=== PATIENT | female | born 1970 | race African-American/Black ===

== ENCOUNTER 2017-09-01 23:15 | Emergency (ER) | payer SELFPAY ==
[~2017-09-01] VITALS: Ht 162.6 cm; Wt 77.1 kg
[~2017-09-01 23:15] MED LIST: CLIN300C8 PO; NAPR-695 PO; PENI500T PO; SENN1TAB7 PO; UNABLE MC
--- NOTE | 2017-09-01 23:32 | PHYS DOC ---
Past Medical History Past Medical History: Anxiety, Asthma, Hypertension Additional Past Medical Histor: OCD,mj,lortab and cocaine detox Past Surgical History: Alcohol Use: None Drug Use: Cocaine, Marijuana, Opiates, Other Adult General Chief Complaint Chief Complaint: left earache [facility] HPI Patient is a 47 year old female who presents with 5 day history gradual onset left-sided earache radiating to the left side of the head. Denies neck pain or stiffness or fever. Denies any chest pain shortness of breath or abdominal pain. Reports some heartburn. Currently undergoing drug rehabilitation for cocaine abuse. Denies sinus congestion or cough. Review of Systems Review of Systems Constitutional: Denies fever or chills [] Eyes: Denies change in visual acuity, redness, or eye pain [] HENT: Denies nasal congestion or sore throat [] Respiratory: Denies cough or shortness of breath [] Cardiovascular: No additional information not addressed in HPI [] GI: Denies abdominal pain, nausea, vomiting, bloody stools or diarrhea [] : Denies dysuria or hematuria [] Musculoskeletal: Denies back pain or joint pain [] Integument: Denies rash or skin lesions [] Neurologic: Denies headache, focal weakness or sensory changes [] Endocrine: Denies polyuria or polydipsia [] Current Medications Current Medications Current Medications Medications (Trade) Dose Ordered Sig/Monika Start Time Stop Time Status Last Admin Dose Admin Acetaminophen (Tylenol) 1,000 mg 1X ONCE 09/01/17 23:45 09/01/17 23:46 DC 09/01/17 23:56 1,000 MG Famotidine (Pepcid) 20 mg 1X ONCE 09/01/17 23:45 09/01/17 23:46 DC 09/01/17 23:56 20 MG Sucralfate (Carafate) 1 gm 1X ONCE 09/01/17 23:45 09/01/17 23:46 DC 09/01/17 23:56 1 GM Allergies Allergies Allergies Coded Allergies Type Severity Reaction Last Updated Verified Sulfa (Sulfonamide Antibiotics) Allergy Severe swelling 10/12/16 Yes Penicillins Allergy Intermediate hives 10/12/16 Yes tuberculin,PPD,multi-puncture Allergy Intermediate hives 10/12/16 Yes Physical Exam Physical Exam Constitutional: Well developed, well nourished, no acute distress, non-toxic appearance. [] HENT: Normocephalic, atraumatic, bilateral external ears normal, oropharynx moist, no oral exudates, nose normal. Left TM is completely normal and the canal is not swollen. [] Eyes: PERRLA, EOMI, conjunctiva normal, no discharge. [] Neck: Normal range of motion, no tenderness, supple, no stridor. No meningismus , no cervical lymphadenopathy [] Cardiovascular: Heart rate regular rhythm, no murmur [] Lungs & Thorax: Bilateral breath sounds clear to auscultation [] Abdomen: Bowel sounds normal, soft, no tenderness, no masses, no pulsatile masses. [] Skin: Warm, dry, no erythema, no rash. [] Back: No tenderness, no CVA tenderness. [] Extremities: No tenderness, no cyanosis, no clubbing, ROM intact, no edema. [] Neurologic: Alert and oriented X 3, normal motor function, normal sensory function, no focal deficits noted. Radial nerves II through XII grossly intact [ ] Psychologic: Affect normal, judgement normal, mood normal. [] Current Patient Data Vital Signs Vital Signs Date Time Temp Pulse Resp B/P (MAP) Pulse Ox O2 Delivery O2 Flow Rate FiO2 09/02/17 00:41 95 20 100 09/01/17 23:20 98.0 123/83 (96) Room Air 98.0 Lab Values Laboratory Tests Test 09/01/17 23:54 White Blood Count 9.7 x10^3/uL (4.0-11.0) Red Blood Count 4.94 x10^6/uL (3.50-5.40) Hemoglobin 13.1 g/dL (12.0-15.5) Hematocrit 39.4 % (36.0-47.0) Mean Corpuscular Volume 80 fL (79-100) Mean Corpuscular Hemoglobin 26 pg (25-35) Mean Corpuscular Hemoglobin Concent 33 g/dL (31-37) Red Cell Distribution Width 16.4 % (11.5-14.5) H Platelet Count 272 x10^3/uL (140-400) Neutrophils (%) (Auto) 52 % (31-73) Lymphocytes (%) (Auto) 37 % (24-48) Monocytes (%) (Auto) 7 % (0-9) Eosinophils (%) (Auto) 3 % (0-3) Basophils (%) (Auto) 1 % (0-3) Neutrophils # (Auto) 5.0 x10^3uL (1.8-7.7) Lymphocytes # (Auto) 3.6 x10^3/uL (1.0-4.8) Monocytes # (Auto) 0.7 x10^3/uL (0.0-1.1) Eosinophils # (Auto) 0.3 x10^3/uL (0.0-0.7) Basophils # (Auto) 0.1 x10^3/uL (0.0-0.2) Sodium Level 143 mmol/L (136-145) Potassium Level 3.8 mmol/L (3.5-5.1) Chloride Level 100 mmol/L (98-107) Carbon Dioxide Level 37 mmol/L (21-32) H Anion Gap 6 (6-14) Blood Urea Nitrogen 16 mg/dL (7-20) Creatinine 0.9 mg/dL (0.6-1.0) Estimated GFR (Cockcroft-Gault) 80.5 BUN/Creatinine Ratio 18 (6-20) Glucose Level 94 mg/dL (70-99) Calcium Level 10.4 mg/dL (8.5-10.1) H Total Bilirubin 0.2 mg/dL (0.2-1.0) Aspartate Amino Transferase (AST) 32 U/L (15-37) Alanine Aminotransferase (ALT) 55 U/L (14-59) Alkaline Phosphatase 91 U/L (46-116) Total Protein 8.0 g/dL (6.4-8.2) Albumin 3.7 g/dL (3.4-5.0) Albumin/Globulin Ratio 0.9 (1.0-1.7) L Laboratory Tests 09/01/17 23:54 Laboratory Tests 09/01/17 23:54 EKG EKG [] Radiology/Procedures Radiology/Procedures CT head without negative per radiology report[] Course & Med Decision Making Course & Med Decision Making Pertinent Labs and Imaging studies reviewed. (See chart for details) Patient was improved prior to dismissal.[] Dragon Disclaimer Dragon Disclaimer This electronic medical record was generated, in whole or in part, using a voice recognition dictation system. Departure Departure Impression: Primary Impression: Earache, left Additional Impression: Headache Disposition: HOME, SELF-CARE Condition: STABLE Referrals: NO PCP (PCP) Problem Qualifiers RAMIRO CARD MD Sep 01, 2017 23:32
[2017-09-01] MEDS ORDERED: SUCRALFATE 1 GM TABLET. PO ONE (23:45)
[2017-09-01] MEDS ORDERED: FAMOTIDINE 20 MG TABLET. PO ONE (23:45)
[2017-09-01] MEDS ORDERED: ACETAMINOPHEN 500 MG TABLET PO ONE (23:45)
--- NOTE | 2017-09-01 23:46 | RAD ---
EXAM: Head CT without contrast. HISTORY: Headache. TECHNIQUE: Computed tomographic images of the head were obtained without contrast. *One or more of the following individualized dose reduction techniques were utilized for this examination: 1. Automated exposure control. 2. Adjustment of the mA and/or kV according to patient size. 3. Use of iterative reconstruction technique. COMPARISON: None. FINDINGS: There is no acute or subacute extra-axial or intraparenchymal hemorrhage. There is no mass effect or midline shift. There is no hydrocephalus. The valdez-white matter differentiation pattern is intact. The visualized portions of the orbits, paranasal sinuses and mastoid air cells are unremarkable. No suspicious calvarial lesion is seen. There is a small suboccipital scalp lymph nodes. IMPRESSION: No acute intracranial findings. Electronically signed by: Nini Finney MD (09/01/2017 11:43 PM) [facility]
[2017-09-02 00:05] LABS: BASO # 0.1 x10^3/uL (0.0-0.2); BASO % 1 % (0-3); EOS % 3 % (0-3); HEMATOCRIT 39.4 % (36.0-47.0); HEMOGLOBIN 13.1 g/dL (12.0-15.5); LYMPH # 3.6 x10^3/uL (1.0-4.8); LYMPH % 37 % (24-48); MEAN CORPUSCULAR HEMOGLOBIN 26 pg (25-35); MEAN CORPUSCULAR HGB CONC 33 g/dL (31-37); MEAN CORPUSCULAR VOLUME 80 fL (79-100); MONO % 7 % (0-9); NEUT % 52 % (31-73); PLATELET COUNT 272 x10^3/uL (140-400); RED BLOOD COUNT 4.94 x10^6/uL (3.50-5.40); RED CELL DISTRIBUTION WIDTH 16.4 % (11.5-14.5); WHITE BLOOD COUNT 9.7 x10^3/uL (4.0-11.0)
[2017-09-02 00:13] LABS: CALCIUM 10.4 mg/dL (8.5-10.1); CREATININE 0.9 mg/dL (0.6-1.0); GFR 80.5; POTASSIUM 3.8 mmol/L (3.5-5.1)
[2017-09-02 00:19] LABS: ALBUMIN 3.7 g/dL (3.4-5.0); ALBUMIN/GLOBULIN RATIO 0.9 (1.0-1.7); TOTAL BILIRUBIN 0.2 mg/dL (0.2-1.0)
[2017-09-02 00:41] VITALS: BP 109/71
== END 2017-09-02 00:42 | disposition home or self-care (01) ==
LOC: ER 23:15
DX: H92.02 Otalgia, left ear (principal); R51 Headache; F41.9 Anxiety disorder, unspecified; J45.909 Unspecified asthma, uncomplicated; I10 Essential (primary) hypertension; F42.9 Obsessive-compulsive disorder, unspecified; Z88.0 Allergy status to penicillin; Z88.2 Allergy status to sulfonamides; Z88.8 Allergy status to other drugs, medicaments and biological substances
CPT/HCPCS: 36415; 70450; 80053; 85025; 99285-25

== ENCOUNTER 2017-12-24 10:24 | Emergency (ER) | payer SELFPAY ==
[2017-12-24] MEDS: GABAPENTIN 300 MG CAPSULE. PO ×2 (11:47)
[2017-12-24] MEDS: traMADol 50 MG TABLET PO ×2 (11:47)
[2017-12-24] MEDS: METHOCARBAMOL 500 MG TABLET PO ×2 (11:47)
== END 2017-12-24 12:33 | disposition home or self-care (01) ==
LOC: ER 10:24
DX: R20.0 Anesthesia of skin (principal); R20.2 Paresthesia of skin; F41.9 Anxiety disorder, unspecified; J45.909 Unspecified asthma, uncomplicated; F31.9 Bipolar disorder, unspecified; E11.9 Type 2 diabetes mellitus without complications; I10 Essential (primary) hypertension; F42.9 Obsessive-compulsive disorder, unspecified; M41.9 Scoliosis, unspecified; F12.10 Cannabis abuse, uncomplicated; F14.10 Cocaine abuse, uncomplicated; F11.10 Opioid abuse, uncomplicated; Z88.1 Allergy status to other antibiotic agents; Z88.0 Allergy status to penicillin; Z88.2 Allergy status to sulfonamides
CPT/HCPCS: 99284

== ENCOUNTER 2017-12-30 20:52 | Emergency (ER) | payer SELFPAY ==
[2017-12-30] MEDS: TETRACAINE 0.5% OPHTH SOLUTION 4ML BOTTLE. OS ×2 (21:09)
[2017-12-30] MEDS: FLUORESCEIN OPHTH TEST STRIP. OS ×2 (21:09)
[2017-12-30] MEDS: DIPHTH,PERTUSS(ACELL),TET TOX 0.5 ML DISP.SYRIN. VAX IM ×2 (21:10)
== END 2017-12-30 22:01 | disposition home or self-care (01) ==
LOC: ER 22:01
DX: S05.02XA Injury of conjunctiva and corneal abrasion without foreign body, left eye, initial encounter (principal); F41.9 Anxiety disorder, unspecified; J45.909 Unspecified asthma, uncomplicated; F31.9 Bipolar disorder, unspecified; E11.9 Type 2 diabetes mellitus without complications; I10 Essential (primary) hypertension; F12.10 Cannabis abuse, uncomplicated; F14.10 Cocaine abuse, uncomplicated; F11.10 Opioid abuse, uncomplicated; Z88.2 Allergy status to sulfonamides; Z88.0 Allergy status to penicillin; Z88.1 Allergy status to other antibiotic agents; X58.XXXA Exposure to other specified factors, initial encounter; Y93.89 Activity, other specified; Y92.89 Other specified places as the place of occurrence of the external cause; Y99.8 Other external cause status
CPT/HCPCS: 90471; 90715; 99283-25

== ENCOUNTER 2018-10-07 09:02 | Emergency (ER) | payer SELFPAY ==
[~2018-10-07] VITALS: Ht 162.6 cm; Wt 81.6 kg
[~2018-10-07 09:02] MED LIST changes: +ERYT1OIN6 OP; +GABA300C18 PO; +HYDR-3164 PO; +METH-37 PO; -SENN1TAB7 PO; +SENN1TAB8 PO; +TRAM50TA PO
[2018-10-07 09:29] VITALS: BP 110/73
[2018-10-07] MEDS ORDERED: IPRATRPIUM/ALBUTEROL 0.5/2.5MG 3 ML NEBU. NEB ONE ×2 (09:45→11:15)
[2018-10-07] MEDS ORDERED: predniSONE 10 MG TABLET PO ONE (09:45)
[2018-10-07 10:28] LABS: BILIRUBIN,URINE NEGATIVE (NEG); CLARITY,URINE CLEAR; COLOR,URINE YELLOW; NITRITE,URINE NEGATIVE (NEG); PH,URINE 7.5; PROTEIN,URINE NEGATIVE (NEG-TRACE); UROBILINOGEN,URINE 0.2 mg/dL (0.2 mg/dL)
--- NOTE | 2018-10-07 10:30 | PHYS DOC ---
Past Medical History Past Medical History: Anxiety, Asthma, Bipolar, COPD, Depression, Diabetes- Type II, Hypertension, Other Additional Past Medical Histor: OCD,mj,lortab/cocaine detox,CHRONIC BACK PAIN Past Surgical History: Additional Information: 0.5 PPD Alcohol Use: None Drug Use: Cocaine, Marijuana, Opiates Adult General Chief Complaint Chief Complaint: Congestion HPI HPI Patient is a 48 year old female who presents with 4 days of a sore throat, ear ache, cough with mucus production and wheezing. Patient states her temperature was 101.0 she's been taking Tylenol, ibuprofen, NyQuil. Patient has COPD and has been using her inhaler but states it is not working. Her only other medical history is hypertension. Currently she is 96% on room air, 85 heart rate, 22 respirations. Review of Systems Review of Systems Constitutional: Denies fever or chills [] Eyes: Denies change in visual acuity, redness, or eye pain [] HENT: nasal congestion and sore throat, bilateral ear pain[] Respiratory: cough and shortness of breath [] Cardiovascular: No additional information not addressed in HPI [] GI: Denies abdominal pain, nausea, vomiting, bloody stools or diarrhea [] : Frequent urination. Denies dysuria or hematuria [] Musculoskeletal: Denies back pain or joint pain [] Integument: Denies rash or skin lesions [] Neurologic: Denies headache, focal weakness or sensory changes [] All other systems were reviewed and found to be within normal limits, except as documented in this note. Current Medications Current Medications Current Medications Medications (Trade) Dose Ordered Sig/[facility] Start Time Stop Time Status Last Admin Dose Admin Albuterol/ Ipratropium (Duoneb) 3 ml 1X ONCE 10/07/18 11:15 10/07/18 11:16 DC 10/07/18 11:10 3 ML Prednisone (Prednisone) 50 mg 1X ONCE 10/07/18 09:45 10/07/18 09:46 DC 10/07/18 10:12 50 MG Allergies Allergies Allergies Coded Allergies Type Severity Reaction Last Updated Verified Sulfa (Sulfonamide Antibiotics) Allergy Severe swelling 10/12/16 Yes Penicillins Allergy Intermediate hives 10/12/16 Yes tuberculin,PPD,multi-puncture Allergy Intermediate hives 10/12/16 Yes Physical Exam Physical Exam Constitutional: Well developed, well nourished, no acute distress, non-toxic appearance. [] HENT: Normocephalic, atraumatic, bilateral external ears normal, oropharynx moist, no oral exudates, nose normal. Throat reddened without exudates. Left ear tympanic is reddened. [] Eyes: PERRLA, EOMI, conjunctiva normal, no discharge. [] Neck: Normal range of motion, no tenderness, supple, no stridor. [] Cardiovascular:Heart rate regular rhythm, no murmur [] Lungs & Thorax: Bilateral breath sounds expiratory wheezes [] Abdomen: Bowel sounds normal, soft, no tenderness, no masses, no pulsatile masses. [] Skin: Warm, dry, no erythema, no rash. [] Back: No tenderness, no CVA tenderness. [] Extremities: No tenderness, no cyanosis, no clubbing, ROM intact, no edema. [] Neurologic: Alert and oriented X 3, normal motor function, normal sensory function, no focal deficits noted. [] Psychologic: Affect normal, judgement normal, mood normal. [] Current Patient Data Vital Signs Vital Signs Date Time Temp Pulse Resp B/P (MAP) Pulse Ox O2 Delivery O2 Flow Rate FiO2 10/07/18 11:10 Room Air 10/07/18 09:45 94 10/07/18 09:29 98.1 85 22 110/73 (85) 98.1 Lab Values Laboratory Tests Test 10/07/18 10:04 Urine Color Yellow Urine Clarity Clear Urine pH 7.5 Urine Specific [place] 1.015 Urine Protein Negative mg/dL (NEG-TRACE) Urine Glucose (UA) Negative mg/dL (NEG) Urine Ketones (Stick) Negative mg/dL (NEG) Urine Blood Negative (NEG) Urine Nitrite Negative (NEG) Urine Bilirubin Negative (NEG) Urine Urobilinogen Dipstick 0.2 mg/dL (0.2 mg/dL) Urine Leukocyte Esterase Negative (NEG) Urine RBC 0 /HPF (0-2) Urine WBC 0 /HPF (0-4) Urine Squamous Epithelial Cells Few /LPF Urine Bacteria 0 /HPF (0-FEW) Influenza Type A Antigen Negative (NEGATIVE) Influenza Type B Antigen Negative (NEGATIVE) EKG EKG [] Radiology/Procedures Radiology/Procedures Chest xray Impressions: [facility] [address] [place] [address] IMAGING REPORT Signed PATIENT: MIREYA ACCOUNT: [id number] : 1970 LOCATION: ER AGE: 48 SEX: F EXAM STATUS: REG ER ORD. PHYSICIAN: RASHEL MOLINA APRN REASON: cough, fever PROCEDURE: CHEST PA & LATERAL Chest, 2 views, 10/07/2018: HISTORY: Cough and fever The heart size and pulmonary vascularity are normal. No pulmonary infiltrate is seen. There is no evidence of pleural fluid. The lungs appear somewhat hyperexpanded. Moderate spurring is present in the spine. IMPRESSION: No acute cardiopulmonary abnormality is detected. Electronically signed by: Zac Lopez MD (10/07/2018 10:51 AM) [facility] DICTATED and SIGNED BY: ZAC LOPEZ MD DATE: 10/07/18 1049 Course & Med Decision Making Course & Med Decision Making Patient is a 48 year old female who presents with 4 days of a sore throat, ear ache, cough with mucus production and wheezing. Patient states her temperature was 101.0 she's been taking Tylenol, ibuprofen, NyQuil. Patient has COPD and has been using her inhaler but states it is not working. Her only other medical history is hypertension. Currently she is 96% on room air, 85 heart rate, 22 respirations. Left ear tympanic is reddened. Throat is reddened but there are no exudates. Patient has expiratory wheezes throughout her lungs. Patient speaks in full sentences. Heart rate regular without murmur. Patient states she is still smoking. Patient states she does not currently have a doctor. Patient has no pedal edema. Alert and oriented. Denies any nausea, vomiting, abdominal pain, diarrhea, dizziness, chest pain. She does have chest tightness. Skin is pink warm and dry. Also complains of frequent urination but denies any burning with urination. Abdomen is soft and nontender. Patient rates her overall pain a 9 out of 10. Patient is given a dose of prednisone and a DuoNeb in the ED. urinalysis shows no infection. Chest x-ray shows no acute findings. After 2 breathing treatments patient's lungs sounds are clear she still has expiratory wheezes. She'll be treated with azithromycin, prednisone, albuterol inhaler and should call her doctor tomorrow for a follow-up appointment. [] Buck Disclaimer Buck Disclaimer This electronic medical record was generated, in whole or in part, using a voice recognition dictation system. Departure Departure Impression: Primary Impression: Bronchitis Disposition: 01 HOME, SELF-CARE Condition: STABLE Referrals: UNKNOWN PCP NAME (PCP) Patient Instructions: Acute Bronchitis Additional Instructions: Follow-up through primary care provider. Take medications as prescribed. Scripts Azithromycin (AZITHROMYCIN TABLET) 250 Mg Tablet 1 PKG PO UD, #6 TAB Prov: RASHEL MOLINA SAMPLE DISPLAY PREPARER 10/07/18 Albuterol Sulfate (PROAIR HFA INHALER) 8.5 Gm Hfa.aer.ad 1 PUFF INH PRN Q6HRS PRN for SHORTNESS OF BREATH, #1 INHALER 0 Refills Prov: RASHEL MOLINA SAMPLE [employer]PLAY [employer]PARER 10/07/18 Prednisone (PREDNISONE) 50 Mg Tablet 1 TAB PO DAILY, #4 TAB Prov: RASHEL MOLINA SAMPLE DISPLAY PREPARER 10/07/18 RASHEL MOLINA APRN Oct 07, 2018 10:30
[2018-10-07 10:42] LABS: INFLUENZA A PATIENT NEGATIVE (NEGATIVE); INFLUENZA B PATIENT NEGATIVE (NEGATIVE)
[2018-10-07 10:48] LABS: BACTERIA,URINE 0 /HPF (0-FEW); RBC,URINE 0 /HPF (0-2); SQUAMOUS EPITHELIAL CELL,UR FEW /LPF; WBC,URINE 0 /HPF (0-4)
--- NOTE | 2018-10-07 10:55 | RAD ---
Chest, 2 views, 10/07/2018: HISTORY: Cough and fever The heart size and pulmonary vascularity are normal. No pulmonary infiltrate is seen. There is no evidence of pleural fluid. The lungs appear somewhat hyperexpanded. Moderate spurring is present in the spine. IMPRESSION: No acute cardiopulmonary abnormality is detected. Electronically signed by: Zac Lopez MD (10/07/2018 10:51 AM) [facility]
[2018-10-07] MEDS ORDERED: PROAIR HFA8.5 GM INH (11:07)
[2018-10-07] MEDS ORDERED: AZIT250T6 PO (11:07)
[2018-10-07] MEDS ORDERED: PRED50TA PO (11:07)
[2018-10-09] MEDS ORDERED: HYDR50TA6 PO (15:56)
[2018-10-09] MEDS ORDERED: CITA40TA12 PO (15:56)
[2018-10-09] MEDS ORDERED: HYDR50TA PO (15:56)
[2018-10-09] MEDS ORDERED: ARIP20TA5 PO (15:56)
[2018-10-09] MEDS ORDERED: BUSP30TA PO (15:56)
== END 2018-10-07 11:30 | disposition home or self-care (01) ==
LOC: ER 09:02
DX: J40 Bronchitis, not specified as acute or chronic (principal); F41.9 Anxiety disorder, unspecified; F31.9 Bipolar disorder, unspecified; J44.9 Chronic obstructive pulmonary disease, unspecified; E11.9 Type 2 diabetes mellitus without complications; I10 Essential (primary) hypertension; G89.29 Other chronic pain; Z98.890 Other specified postprocedural states; F17.200 Nicotine dependence, unspecified, uncomplicated; R35.0 Frequency of micturition; H92.01 Otalgia, right ear; H92.02 Otalgia, left ear; Z88.2 Allergy status to sulfonamides; Z88.1 Allergy status to other antibiotic agents; Z88.8 Allergy status to other drugs, medicaments and biological substances
CPT/HCPCS: 71046; 81001; 87804; 94640; 99284; J7512; J7620